=== PATIENT | male | born 1985 | race Caucasian/White ===

== ENCOUNTER → 2020-12-01 | Outpatient (CLI) | payer OTHER ==
[~2020-12-01] MED LIST: BACTRIM DS TAB1 EACH PO; CEFUROXIME500 MG PO; COZAAR25 MG PO; FLEXERIL 10 MG10 MG PO; GLUCOPHAGE500 MG PO; HYDROCODON-ACE1 EAC4 PO; IBUPROFEN600 MG PO; IMITREX50 MG PO; LEVAQUIN500 MG PO; LODINE CAP 300300 MG PO; MEDROL4 MG PO; METFORMIN HCL1000 MG PO; NEURONTIN300 MG PO; NORCO 5-325 TA1 EACH PO; NORVASC10 MG PO; OMNICEF 300 MG300 MG PO; VENTOLIN HFA 66.7 GM INH; ZOFRAN ODT 4 MG4 MG PO
== END ==
LOC: HEART 5 10-05 11:00
DX: R07.9 Chest pain, unspecified (principal); R06.02 Shortness of breath; I51.7 Cardiomegaly
CPT/HCPCS: 93306

== ENCOUNTER → 2021-04-28 | Outpatient (CLI) | payer OTHER | LOC: EXRD 09:28 | DX: R93.89 Abnormal findings on diagnostic imaging of other specified body structures (principal); J98.11 Atelectasis | CPT/HCPCS: 71046 ==

== ENCOUNTER → 2021-05-25 | Outpatient (CLI) | payer OTHER | LOC: KOH-I 15:16 | DX: M54.2 Cervicalgia (principal); M54.6 Pain in thoracic spine; M54.5 Low back pain; M47.816 Spondylosis without myelopathy or radiculopathy, lumbar region | CPT/HCPCS: 72040; 72070; 72100 ==

== ENCOUNTER → 2021-05-26 | Outpatient (CLI) | payer OTHER ==
[2021-05-26 16:33] LABS: HEMOGLOBIN 15.3 gm/dl (14.0-17.5); RED BLOOD COUNT 4.98 M/UL (4.20-5.50); WHITE BLOOD COUNT 10.3 K/UL (4.5-11.0)
[2021-05-26 16:47] LABS: BUN/CREATININE RATIO 10 (0-10)
== END ==
LOC: LAB 14:18
PROVIDERS: Internal Medicine Interventional Cardiology
DX: E11.9 Type 2 diabetes mellitus without complications (principal); R53.83 Other fatigue; R07.9 Chest pain, unspecified; I20.8 Other forms of angina pectoris; R06.02 Shortness of breath; E78.2 Mixed hyperlipidemia; I10 Essential (primary) hypertension
CPT/HCPCS: 36415; 80048; 85025; 85610; 85730; 93005

== ENCOUNTER → 2021-06-01 | Outpatient (CLI) | payer OTHER ==
[~2021-06-01] MED LIST changes: +BAYER CHEWABLE81 MG PO; +CRESTOR10 MG PO; +JANUVIA 100 MG100 MG PO; +POTASSIUM CHLO20 ME1 PO; +VITAMIN D21250 MCG PO
== END ==
LOC: CATH 09:25
DX: I25.110 Atherosclerotic heart disease of native coronary artery with unstable angina pectoris (principal); I10 Essential (primary) hypertension; E11.9 Type 2 diabetes mellitus without complications; M19.90 Unspecified osteoarthritis, unspecified site; E78.2 Mixed hyperlipidemia; F17.210 Nicotine dependence, cigarettes, uncomplicated; Z79.82 Long term (current) use of aspirin; Z79.84 Long term (current) use of oral hypoglycemic drugs; Z79.899 Other long term (current) drug therapy; Z53.09 Procedure and treatment not carried out because of other contraindication
CPT/HCPCS: 84132

== ENCOUNTER → 2021-08-17 | Outpatient (CLI) | payer OTHER | LOC: LAB 10:33 | DX: E78.5 Hyperlipidemia, unspecified (principal); E87.6 Hypokalemia; I10 Essential (primary) hypertension | CPT/HCPCS: 36415; 82436; 82533; 82550; 82570; 83735; 84133; 84156; 84300; 84443 ==

== ENCOUNTER → 2021-08-19 | Outpatient (CLI) | payer OTHER | LOC: KOH-I 08-18 11:00 | DX: N35.919 Unspecified urethral stricture, male, unspecified site (principal) | CPT/HCPCS: 76775 ==

== ENCOUNTER → 2021-08-25 | Outpatient (CLI) | payer OTHER ==
[2021-08-26 07:12] LABS: CALCIUM, SERUM 9.7 mg/dL (8.7-10.2); CREATININE, SERUM 0.73 mg/dL (0.76-1.27); POTASSIUM, SERUM 3.3 mmol/L (3.5-5.2)
== END ==
LOC: LAB 11:28
PROVIDERS: Internal Medicine Nephrology
DX: R80.9 Proteinuria, unspecified (principal); E87.6 Hypokalemia
CPT/HCPCS: 36415; 80048; 87077; 87086; 87186

== ENCOUNTER → 2021-12-22 | Outpatient (CLI) | payer OTHER ==
[2021-12-22 16:13] LABS: BUN/CREATININE RATIO 11 (0-10)
== END ==
LOC: LAB 15:16
PROVIDERS: Internal Medicine Nephrology
DX: E87.6 Hypokalemia (principal); R80.9 Proteinuria, unspecified
CPT/HCPCS: 36415; 80053; 82570; 83735; 84156

== ENCOUNTER → 2022-03-23 | Outpatient (CLI) | payer OTHER ==
[2022-03-23 16:55] LABS: BUN/CREATININE RATIO 11 (0-10)
== END ==
LOC: LAB 16:02
PROVIDERS: Internal Medicine Nephrology
DX: N39.0 Urinary tract infection, site not specified (principal); R80.9 Proteinuria, unspecified; E87.6 Hypokalemia
CPT/HCPCS: 36415; 80053; 81001; 82570; 83735; 84156; 87077; 87086; 87186